=== PATIENT | male | born 1940 | race Caucasian/White ===

== ENCOUNTER 2019-07-18 10:26 | Observation (INO) | payer MEDICARE ==
[~2019-07-18] VITALS: Ht 160 cm; Wt 70.0 kg
[2019-07-18] VITALS (18 sets, daily range): BP systolic 97–173; BP diastolic 45–95
[~2019-07-18 10:26] MED LIST: ASPI-611 PO; ATOR20TA66 PO; BACL10TA2 PO; BRIN8DRO LEFTEYE; CALC-1197 PO; CHOL100046 PO; CYANOCOBALAMIN PO; DIPH-186 PO; DIPH25CA46 PO; DULO-31 PO; MELO-102 PO; METF500T20 PO; PANT40TA4 PO; [UNRECOGNIZED DRUG - OTHER] PEG; [UNRECOGNIZED DRUG - OTHER] PO; cefazolin/dext.iso 2gm/50ml 50 ML IV ONE; famotidine 20mg tablet PO ONE
[2019-07-18] MEDS: ringers solution, lacted 1,000 ML IV SCH (11:17)
[2019-07-18 11:22] LABS: BASOPHILS # (AUTO) 0.1 X10'3 (0-0.2); BASOPHILS % (AUTO) 0.9 % (0-1); EOSINOPHILS # (AUTO) 0.2 X10'3 (0-0.9); EOSINOPHILS % (AUTO) 2.6 % (0-6); LYMPHOCYTES # (AUTO) 1.7 X10'3 (1.1-4.8); LYMPHOCYTES % (AUTO) 22.2 % (21-51); MEAN CORPUSCULAR HEMOGLOBIN 30.3 PG (27.0-31.0); MEAN CORPUSCULAR HGB CONC 33.5 g/dL (33.0-36.5); MEAN CORPUSCULAR VOLUME 90.4 FL (78-98); MEAN PLATELET VOLUME 9.2 FL (7.4-10.4); MONOCYTES # (AUTO) 0.7 X10'3 (0-0.9); MONOCYTES % (AUTO) 9.4 % (2-12); NEUTROPHILS # (AUTO) 4.8 X10'3 (1.8-7.7); NEUTROPHILS % (AUTO) 64.9 % (42-75); PRE OP HEMATOCRIT 47.2 % (42.0-52.0); PRE OP HEMOGLOBIN 15.8 g/dL (14.0-17.9); PRE OP PLATELET COUNT 214 X10'3 (140-440); RED BLOOD COUNT 5.22 X10'6 (4.70-6.10); RED CELL DISTRIBUTION WIDTH 17.7 % (11.5-14.5)
[2019-07-18 11:35] LABS: ALBUMIN 3.4 G/DL (3.4-5.0); ALBUMIN/GLOBULIN RATIO 0.7 (1.1-1.5); ALKALINE PHOSPHATASE 92 IU/L (46-116); BLOOD UREA NITROGEN 18 MG/DL (7-18); BUN/CREATININE RATIO 18.2 (5.4-32.0); CHLORIDE 104 MMOL/L (99-107); CREATININE 0.99 MG/DL (0.60-1.10); PRE OP ALT 46 U/L (30-65); PRE OP ANION GAP 8 (8-16); PRE OP AST 34 U/L (10-37); PRE OP BILIRUB, TOTAL 0.2 MG/DL (0.0-1.0); PRE OP GLUCOSE 96 MG/DL (70-104); PRE OP POTASSIUM 4.3 MMOL/L (3.4-5.1); PRE OP SODIUM 138 MMOL/L (135-145); TOTAL CARBON DIOXIDE 25.7 MMOL/L (24-32); eGFR 73 ML/MIN
[2019-07-18] MEDS ORDERED: ceFAZolin 1000mg inj ONE (13:31)
[2019-07-18] MEDS ORDERED: BUPIVAcaine/PF 2.5 mg/ml (0.25%) 30ml vial ONE (13:32)
[2019-07-18] MEDS ORDERED: sevoflurane 250ml liquid IH ONE (15:03)
[2019-07-18] MEDS ORDERED: neostigmine methylsulfate 1 MG/ML 10ml vial ONE (15:03)
[2019-07-18] MEDS ORDERED: ondansetron/PF 4mg/2ml inj IV PRN ×2 (15:10→16:25)
[2019-07-18] MEDS ORDERED: midazolam 2 mg/2 ml injection ONE (15:13)
[2019-07-18] MEDS ORDERED: fentaNYL /PF 50mcg/ml 5ml ampule ONE (15:15)
[2019-07-18] MEDS ORDERED: propofol inj 20 ML IV ONE (15:25)
[2019-07-18] MEDS ORDERED: LIDOcaine 2% (20mg/ml) 5ml vial ONE (15:26)
[2019-07-18] MEDS ORDERED: ondansetron/PF 4mg/2ml inj ONE (15:26)
[2019-07-18] MEDS ORDERED: rocuronium 10mg/ml inj IV ONE (15:26)
[2019-07-18] MEDS ORDERED: dexamethasone sod phosphate 4mg/ml inj. ONE (15:26)
[2019-07-18] MEDS ORDERED: acetaminophen 1,000mg/100ml IV 100 ML IV ONE (16:20)
[2019-07-18] MEDS ORDERED: ringers solution, lacted 1,000 ML IV SCH (16:22)
[2019-07-18] MEDS ORDERED: proCHLORperazine 10 MG/2 ml inj IV PRN (16:25)
[2019-07-18] MEDS ORDERED: morphine 4 MG/ML inj SYRINge IV PRN ×2 (16:25)
[2019-07-18] MEDS ORDERED: meperidine/PF 25mg/ml syringe IV PRN ×3 (16:25)
[2019-07-18] MEDS ORDERED: glycopyrrolate 0.2mg/ml inj ONE (16:36)
--- NOTE | 2019-07-18 16:45 | NUR ---
98 BLOOD GLUCOSE UPON ARRIVAL Addendum: 07/18/19 at 1656 by Moisés Cavanaugh RN, RN Amended: Links added.
--- NOTE | 2019-07-18 16:45 | NUR ---
Received from OR via SURGICAL BED WITH MIRANDA KENT , accompanied by Anesthesiologist KERLINE and report given by Anesthesiolgist. 98 BG UPON ARRIVAL. 20G PIV IN LEFT UE RUNNING LR AT 100. 3 ABDOMINAL LAP SITES PRESENT AND ARE ALL CDI CURRENTLY. Addendum: 07/18/19 at 1654 by Moisés Cavanaugh RN, RN Amended: Links added.
[2019-07-18] MEDS ORDERED: naloxone 0.4 mg/ml inj ONE (16:54)
--- NOTE | 2019-07-18 17:05 | NUR ---
Received report from MARGOT Curiel. Awaiting patient arrival to room 354a.
[2019-07-18] MEDS ORDERED: CADD PCA waste documentation MC PRN (17:45)
[2019-07-18] MEDS ORDERED: naloxone 0.4 mg/ml inj IV PRN (17:45)
[2019-07-18] MEDS: HYDROmorphone/NS 1 mg/ml CADD 50 ML IV SCH ×4 (17:47→23:00)
--- NOTE | 2019-07-18 17:55 | NUR ---
ALL CRITERIA FOR TRANSFER TO THE FLOOR HAS BEEN ACHIEVED. VSS. BED LOW, CALL LIGHT AND VS. SET IN PLACE. RN PRESENT TO ACCEPT CARE. PATIENT RESTING COMFORTABLY IN BED. BELONGINGS SENT WITH PATIENT. DRESSINGS CDI. MARGOT WICK PRESENT TO ACCEPT CARE. INSTRUCTED PATIENT AND ON PROPER USAGE OF CADD PUMP. 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 AGREES TO COMPLY. VSS Addendum: 07/18/19 at 1804 by Moisés Yao - MARGOT FROST Amended: Links added.
--- NOTE | 2019-07-18 18:04 | NUR ---
received patient to room 354a via bed accompanied by jd patino and jd foss and patient's spouse. patient drowsy but easily awakens to voice. patient c/o pain. patient and spouse was educated by jd patino on cadd use. bed low and locked. SRx2 up.
--- NOTE | 2019-07-18 18:37 | NUR ---
Problems reprioritized. Patient report given, questions answered & plan of care reviewed with Hermila Rn.
--- NOTE | 2019-07-18 19:30 | NUR ---
informed in report that pt arrived from recovery room with o2 set at 5 liters per NC Addendum: 07/19/19 at 0144 by Chantell Teresa RN Amended: Links added.
[2019-07-18] MEDS ORDERED: normal saline 1000ml 1,000 ML IV SCH (20:50)
[2019-07-18] MEDS ORDERED: diphenoxylate/atropine tablet (Lomotil) PO PRN (21:55)
[2019-07-19] VITALS: BP 114/75
[2019-07-19] MEDS: ringers solution, lacted 1,000 ML IV SCH (00:25)
[2019-07-19] MEDS: HYDROmorphone/NS 1 mg/ml CADD 50 ML IV SCH ×4 (01:00→07:00)
[2019-07-19 04:00] VITALS: BP 99/46
[2019-07-19 07:00] VITALS: BP 99/56
[2019-07-19] MEDS ORDERED: vitamin D (cholecalciferol) 1,000 unit tablet PO SCH (08:00)
[2019-07-19] MEDS ORDERED: baclofen 10mg tablet PO SCH (08:00)
[2019-07-19] MEDS ORDERED: atorvastatin 20mg tablet PO SCH (08:00)
[2019-07-19] MEDS ORDERED: naproxen 500mg tablet PO SCH ×2 (08:00→09:44)
[2019-07-19] MEDS ORDERED: calcium carbonate/vitamin D3 tablet PO SCH (08:00)
[2019-07-19] MEDS ORDERED: MAGNESIUM PO SCH (08:00)
[2019-07-19] MEDS ORDERED: aspirin 81mg tablet.DR PO SCH (08:00)
[2019-07-19] MEDS ORDERED: duloxetine 30mg CAPSULE.DR PO SCH (08:00)
[2019-07-19] MEDS ORDERED: pantoprazole 40mg Tablet.DR PO SCH (21:00)
[2019-07-19] MEDS ORDERED: metFORMIN 500mg tablet PO SCH (21:00)
[2019-07-19] MEDS ORDERED: diphenhydrAMINE 25mg capsule PO SCH (21:00)
== END 2019-07-19 10:55 | disposition home or self-care (01) ==
LOC: PAS 10:26 → UNDOADMOB 21:09 → SUR 3N 21:09 → UNDODISOB 07-19 10:55 → PAS 07-19 10:55
PROVIDERS: ADMIT Surgery; ATTEND Surgery
DX: K43.2 Incisional hernia without obstruction or gangrene (principal); K42.9 Umbilical hernia without obstruction or gangrene; I71.9 Aortic aneurysm of unspecified site, without rupture; Z79.84 Long term (current) use of oral hypoglycemic drugs; Z79.899 Other long term (current) drug therapy
CPT/HCPCS: 36415; 49652; 80053; 82948; 85025; 96365; 96366; 96375; C1758; C1781; G0378; J0131; J0690; J1100; J1170; J2001; J2175; J2250; J2270; J2310; J2405; J2704; J2710; J3010; J3490; J7030; J7120; A4215; A4618; A7000

== ENCOUNTER 2020-08-18 18:01 | Emergency (ER) | payer BC, MEDICARE ==
[~2020-08-18] VITALS: Ht 162.6 cm; Wt 71.8 kg
[~2020-08-18 18:01] MED LIST changes: -CALC-1197 PO; +CALC-1215 PO; +METF-900 PO; -METF500T20 PO; -PANT40TA4 PO; +PANT40TA54 PO; -[UNRECOGNIZED DRUG - OTHER] PEG; -cefazolin/dext.iso 2gm/50ml 50 ML IV ONE; -famotidine 20mg tablet PO ONE
[2020-08-18 20:52] VITALS: BP 105/80
== END 2020-08-18 20:54 | disposition home or self-care (01) ==
LOC: ER 18:02
DX: S80.02XA Contusion of left knee, initial encounter (principal); S40.011A Contusion of right shoulder, initial encounter; S00.31XA Abrasion of nose, initial encounter; S09.90XA Unspecified injury of head, initial encounter; I25.10 Atherosclerotic heart disease of native coronary artery without angina pectoris; Z91.81 History of falling; Z87.891 Personal history of nicotine dependence; Z79.2 Long term (current) use of antibiotics; Z79.899 Other long term (current) drug therapy; Z91.048 Other nonmedicinal substance allergy status; W22.09XA Striking against other stationary object, initial encounter; Y93.89 Activity, other specified; Y92.89 Other specified places as the place of occurrence of the external cause; Y99.8 Other external cause status
CPT/HCPCS: 70450; 72125; 73030; 73564; 99285